=== PATIENT | female | born 2000 | race Caucasian/White ===

== ENCOUNTER 2020-05-02 13:42 | Emergency (ER) | payer MEDICAID, SELFPAY ==
[~2020-05-02] VITALS: Ht 154.9 cm; Wt 81.6 kg
[2020-05-02 13:43] VITALS: Ht 154.9 cm; Wt 81.6 kg
[2020-05-02 18:21] VITALS: BP 139/89
== END 2020-05-02 18:23 | disposition home or self-care (01) ==
LOC: ED 13:42
DX: M54.9 Dorsalgia, unspecified (principal); R07.89 Other chest pain; E66.9 Obesity, unspecified; Z68.34 Body mass index [BMI] 34.0-34.9, adult; Z20.828 Contact with and (suspected) exposure to other viral communicable diseases
CPT/HCPCS: Q0092; U0003-CS

== ENCOUNTER 2020-07-20 16:23 | Emergency (ER) | payer OTHER ==
[~2020-07-20] VITALS: Ht 154.9 cm; Wt 93.9 kg
[2020-07-20 16:58] VITALS: BP 108/87; Ht 154.9 cm; Wt 93.9 kg
== END 2020-07-20 18:45 | disposition home or self-care (01) ==
LOC: ED 16:23
DX: S93.401A Sprain of unspecified ligament of right ankle, initial encounter (principal); X50.1XXA Overexertion from prolonged static or awkward postures, initial encounter; Y93.89 Activity, other specified; Y92.89 Other specified places as the place of occurrence of the external cause; Y99.8 Other external cause status